=== PATIENT | male | born 1985 | race Caucasian/White ===

== ENCOUNTER 2020-01-23 08:23 | Emergency (ER) | payer OTHER ==
[~2020-01-23] VITALS: Ht 177.8 cm; Wt 93.2 kg
[~2020-01-23 08:23] MED LIST: BACTRIM DS 8001 TA1 PO; MUPIROCIN2% TP
[2020-01-23] MEDS ORDERED: BACTRIM DS TAB1 EACH PO (09:02)
[2020-01-23] MEDS ORDERED: CEPHALEXIN500 M1 PO (09:04)
[2020-01-23 09:33] VITALS: BP 122/92
== END 2020-01-23 09:40 | disposition home or self-care (01) ==
LOC: ED 08:23
DX: J34.0 Abscess, furuncle and carbuncle of nose (principal)